=== PATIENT | female | born 1955 | race Caucasian/White ===

== ENCOUNTER 2022-01-03 19:24 | Emergency (ER) | payer MEDICARE, OTHER ==
[~2022-01-03] VITALS: Ht 170.1 cm; Wt 81.6 kg
[~2022-01-03 19:24] MED LIST: HYDROCODONE BIT1 T11 PO; MAXZIDE-25 25MG25 MG PO; MONOPRIL10 MG PO; Motrin,Rufen800 MG PO; NORVASC5 MG PO; Orphenadrine C100 MG PO; VOLTAREN50 MG PO
[2022-01-03] MEDS ORDERED: TRIAMTERENE-HC1 EACH PO (19:43)
[2022-01-03] MEDS ORDERED: Lopressor25 MG PO (19:43)
[2022-01-03] MEDS ORDERED: AMLODIPINE BESY10 MG PO (19:43)
[2022-01-03] MEDS ORDERED: QUINAPRIL40 MG PO (19:44)
[2022-01-03 20:13] LABS: BILIRUBIN Negative (Negative); BLOOD Negative (Negative); CLARITY Clear (Clear); COLOR Yellow (Yellow); GLUCOSE Negative (Negative); KETONE Negative (Negative); LEUKO ESTERASE Negative (Negative); NITRITE Negative (Negative); PH 5.5 (4.5-8.0); UROBILINOGEN 0.2 E.U./dl (0.0-1.0)
[2022-01-03 20:24] LABS: BACTERIA 1+
[2022-01-03 20:43] LABS: BASO % 0.8 % (0.0-1.0); EOS % 0.3 % (1.0-4.0); HEMATOCRIT 38.8 % (37.0-47.0); LYMPH # 0.7 10*3/uL (1.3-4.4); LYMPH % 19.7 % (27.0-41.0); MEAN CELL VOLUME 89.4 fl (81.0-99.0); MEAN CORPUSCULAR HGB 30.6 pg (27.0-31.0); MEAN CORPUSCULAR HGB CONC 34.3 g/dl (33.0-37.0); MEAN PLATELET VOLUME 9.9 fl (9.6-12.3); MONO # 0.5 10*3/uL (0.1-1.0); MONO % 13.7 % (3.0-9.0); NEUT # 2.4 10*3/uL (2.3-7.9); NEUT % 65.2 % (47.0-73.0); PLATELET COUNT AUTOMATED 183 10*3/uL (130-400); RED BLOOD COUNT 4.34 10*6/uL (4.10-5.10); RED CELL DISTRI WIDTH 12.7 % (0-14.5); WHITE BLOOD COUNT 3.7 10*3/uL (4.8-10.8)
[2022-01-03 21:01] LABS: ALKALINE PHOSPHATASE 46 U/L (45-117); BUN 14 mg/dl (7-24); CHLORIDE 111 mmol/L (98-107); CREATININE 0.87 mg/dL (0.55-1.02); POTASSIUM 3.2 mmol/L (3.5-5.1); SGOT/AST 19 IU/L (3-35); SGPT/ALT 25 U/L (12-78); SODIUM 142 mmol/L (136-145); TOTAL PROTEIN 6.2 gm/dL (6.4-8.2)
== END 2022-01-03 22:33 | disposition home or self-care (01) ==
LOC: ED 19:24
PROVIDERS: Nurse Practitioner Family
DX: U07.1 COVID-19 (principal); Z79.899 Other long term (current) drug therapy

== ENCOUNTER 2022-03-04 15:51 | Emergency (ER) | payer OTHER ==
[~2022-03-04] VITALS: Wt 79.8 kg
[~2022-03-04 15:51] MED LIST changes: +AMLODIPINE BESY10 MG PO; +Lopressor25 MG PO; +QUINAPRIL40 MG PO; +TRIAMTERENE-HC1 EACH PO
[2022-03-04] MEDS ORDERED: MEDROL DOSEPAK4 MG PO (17:00)
== END 2022-03-04 17:06 | disposition home or self-care (01) ==
LOC: ED 15:51
DX: T63.441A Toxic effect of venom of bees, accidental (unintentional), initial encounter (principal); Z79.899 Other long term (current) drug therapy; Y92.89 Other specified places as the place of occurrence of the external cause

== ENCOUNTER 2025-02-20 15:42 | Emergency (ER) | payer OTHER ==
[~2025-02-20] VITALS: Ht 170.1 cm; Wt 79.4 kg
[~2025-02-20 15:42] MED LIST changes: +MEDROL DOSEPAK4 MG PO
[2025-02-20] MEDS ORDERED: PREDNISONE20 M1 PO (16:12)
== END 2025-02-20 16:30 | disposition home or self-care (01) ==
LOC: ED 15:42
DX: L25.9 Unspecified contact dermatitis, unspecified cause (principal); Z79.899 Other long term (current) drug therapy

== ENCOUNTER 2025-02-25 13:52 | Emergency (ER) | payer OTHER ==
[~2025-02-25] VITALS: Ht 170.1 cm; Wt 79.4 kg
[~2025-02-25 13:52] MED LIST changes: +PREDNISONE20 M1 PO
[2025-02-25] MEDS ORDERED: SODIUM CHLORIDE 0.9% 1,000 ML IV ONE (14:20)
[2025-02-25] MEDS ORDERED: Ondansetron Hydrochloride 4 MG/2 ML VIAL IV ONE (14:20)
[2025-02-25 14:37] LABS: BASO # 0.0 10*3/uL (0.0-0.1); BASO % 0.1 % (0.0-1.0); EOS # 0.0 10*3/uL (0.0-0.4); EOS % 0.0 % (1.0-4.0); MEAN CELL VOLUME 89.1 fl (81.0-99.0); MEAN CORPUSCULAR HGB 30.3 pg (27.0-31.0); MEAN PLATELET VOLUME 10.1 fl (9.6-12.3); MONO # 0.3 10*3/uL (0.1-1.0); MONO % 3.4 % (3.0-9.0); NEUT # 7.0 10*3/uL (2.3-7.9); NEUT % 84.5 % (47.0-73.0); NUCLEATED RED BLOOD CELL 0.0 % (0.0-0.0); NUCLEATED RED BLOOD CELL 0.0 10*3/uL (0.0-0.0); PLATELET COUNT AUTOMATED 280 10*3/uL (130-400); RED CELL DISTRI WIDTH 12.7 % (0-14.5)
[2025-02-25 15:14] LABS: BUN 29.0 mg/dl (9-23); SGPT/ALT 22.0 U/L (5-49)
== END 2025-02-25 16:38 | disposition home or self-care (01) ==
LOC: ED 13:52
PROVIDERS: Emergency Medicine
DX: S63.254A Unspecified dislocation of right ring finger, initial encounter (principal); R55 Syncope and collapse; K59.00 Constipation, unspecified; E87.6 Hypokalemia; N28.9 Disorder of kidney and ureter, unspecified; I10 Essential (primary) hypertension; Z79.899 Other long term (current) drug therapy; W18.2XXA Fall in (into) shower or empty bathtub, initial encounter; Y93.89 Activity, other specified; Y92.89 Other specified places as the place of occurrence of the external cause; Y99.8 Other external cause status

== ENCOUNTER 2025-03-20 11:34 | Emergency (ER) | payer OTHER ==
[~2025-03-20] VITALS: Ht 170.1 cm; Wt 78.0 kg
[2025-03-20] MEDS ORDERED: Sulfamethoxazole/Trimethopri 1 TAB TAB PO ONE (13:45)
[2025-03-20] MEDS ORDERED: SEPTDS PO (13:46)
== END 2025-03-20 14:00 | disposition home or self-care (01) ==
LOC: ED 11:34
DX: N76.0 Acute vaginitis (principal)